=== PATIENT | male | born 1935 | race Caucasian/White ===

== ENCOUNTER 2017-01-26 13:45 | Emergency (ER) | payer OTHER ==
[~2017-01-26] VITALS: Ht 182.9 cm; Wt 69.0 kg
[~2017-01-26 13:45] MED LIST: AMLO5TAB22 PO; APIX5TAB PO; DIGO0.12 PO; FERR65TA PO; HYDR-3535 PO; METO50CR PO; OMEP20TA PO; PRAV40TA2 PO; REST30CA PO; TAMS0.4C67 PO; VISM150C PO; VITA100020 PO; VITA500015 CHEW; ZOFR4TAB3 SL
[2017-01-26 13:51] VITALS: BP 161/79; PULSE 83; RESP 16; TEMP 98.4; O2SAT 100
[2017-01-26] MEDS ORDERED: PRIL20TA2 PO (14:45)
[2017-01-26] MEDS ORDERED: DIGO0.12 PO (14:45)
[2017-01-26] MEDS ORDERED: TEMA15CA PO (14:45)
[2017-01-26] MEDS ORDERED: PRAV40TA2 PO (14:45)
[2017-01-26] MEDS ORDERED: NEUR100C PO (14:45)
[2017-01-26] MEDS ORDERED: AMMO12CR4 TOP (14:45)
[2017-01-26] MEDS ORDERED: DILT120C9 PO (14:45)
[2017-01-26] MEDS ORDERED: TAMS5CAP PO (14:45)
[2017-01-26] MEDS ORDERED: APIX5TAB PO (14:45)
[2017-01-26] MEDS ORDERED: ZINC50TA2 PO (14:48)
[2017-01-26] MEDS ORDERED: MAPA500T13 PO (14:48)
[2017-01-26] MEDS ORDERED: TUMS500C CHEW (14:48)
[2017-01-26] MEDS ORDERED: VITA250C3 CHEW (14:48)
[2017-01-26] MEDS ORDERED: DIPH25CA PO (14:48)
[2017-01-26] MEDS ORDERED: CHOL1CAP14 PO (14:48)
[2017-01-26] MEDS ORDERED: FERR325C PO (14:48)
[2017-01-26] MEDS ORDERED: CYAN1TAB24 PO (14:48)
--- NOTE | 2017-01-26 14:55 | PD ---
HPI . Right lower leg swelling Chief Complaint: Skin Problem Time Seen by Provider: 14:07 Travel History International Travel<30 days: No Contact w/Intl Traveler<30days: No Traveled to known affect area: No History of Present Illness HPI 81-year-old male patient presents emergency department for evaluation of right lower leg swelling. Patient was doing some yard work yesterday and thought he might have gotten bitten by a bug. However he does not have any localized itching or bug bite montalvo. Patient denies any injury or trauma to the right lower leg. He says he first noticed the swelling this morning. He has a history of 5 times of cancer and has recently had some skin cancer removed in October. Patient states the right lower leg is a little bit sore but he is able to bear weight. There is mild erythema localized warmth. Patient denies any chest pain, shortness breath, fever, chills, malaise, abdominal pain, nausea, vomiting, diarrhea or lightheadedness. PFSH Past Medical History Hx Anticoagulant Therapy: Yes (ELIQUIS) Anxiety: No Depression: Yes Heart Rhythm Problems: Yes Cancer: Yes (PROSTATE, COLON, SKIN) Cardiovascular Problems: Yes (PACEMAKER) High Cholesterol: No Chest Pain: No Congestive Heart Failure: No Cerebrovascular Accident: No Diabetes: No Diminished Hearing: No Endocrine: No Gastrointestinal Disorders: Yes GERD: Yes Genitourinary: Yes Hiatal Hernia: No Hypertension: Yes Immune Disorder: No Implanted Vascular Access Dvce: Yes Kidney Stones: No Musculoskeletal: No Neurologic: Yes Psychiatric: Yes Reproductive: Yes Respiratory: No Migraines: No Radiation Therapy: Yes (2007) Renal Failure: No Tetanus Vaccination: Unknown Influenza Vaccination: No Past Surgical History Abdominal Surgery: Yes (colon resection, gastrectomy, appendectomy ) Appendectomy: Yes Cardiac Surgery: Yes (pacemaker) Eye Surgery: Yes (cataract ) Pacemaker: Yes Other Surgery: Yes (PROSTRATE AND COLON SURGERY DUE TO CA) Social History Alcohol Use: Yes (1-2 glasses wine/night) Tobacco Use: No Substance Use: No Allergies-Medications (Allergen,Severity, Reaction): Coded Allergies: No Known Allergies (Verified , 01/26/17) Reported Meds & Prescriptions Reported Meds & Active Scripts Active Reported Mapap Extra Strength (Acetaminophen) 500 Mg Tab 500 Mg PO Q4-6H PRN Tums (Calcium Carbonate (Antacid)) 500 Mg Chew 500 Mg CHEW DAILY PRN Diphenhydramine (Diphenhydramine HCl) 25 Mg Cap 25 Mg PO HS PRN Vitamin C (Ascorbic Acid) 250 Mg Chew 1,000 Mg CHEW DAILY Zinc Gluconate 50 Mg Tab 50 Mg PO DAILY Iron (Ferrous Sulfate) 325 Mg Cap 325 Mg PO DAILY D3 Maximum Strength (Cholecalciferol) 5,000 Unit Cap 5,000 Units PO EVERY OTHER DAY B12 (Cyanocobalamin) 1,000 Mcg Tab 1 Tab PO EVERY OTHER DAY Diltiazem ER 12 HR (Diltiazem HCl) 120 Mg Caper 120 Mg PO DAILY Prilosec (Omeprazole Magnesium) 20 Mg Tab 1 Tab PO DAILY PRN Ammonium Lactate (Lactic Acid) 12 % Cre 1 Applic TOP BID APPLY TO: Temazepam 15 Mg Cap 15 Mg PO HS PRN Neurontin (Gabapentin) 100 Mg Cap 100 Mg PO DIRECTED Eliquis (Apixaban) 5 Mg Tab 5 Mg PO BID Pravastatin 40 Mg Tab 40 Mg PO DAILY Digoxin 0.125 Mg Tab 0.125 Mg PO DAILY Flomax (Tamsulosin HCl) 0.4 Mg Cap 0.4 Mg PO HS Review of Systems Except as stated in HPI: all other systems reviewed are Neg Musculoskeletal: Positive: Edema (right lower leg) Physical Exam Narrative GENERAL: Well-nourished, well-developed 81-year-old male patient in no acute distress. Nontoxic appearing. SKIN: Focused skin assessment warm/dry. HEAD: Normocephalic. Atraumatic EYES: No scleral icterus. No injection or drainage. NECK: Supple, trachea midline. No JVD or lymphadenopathy. CARDIOVASCULAR: Regular rate and rhythm without murmurs, gallops, or rubs. RESPIRATORY: Breath sounds equal bilaterally. No accessory muscle use. GASTROINTESTINAL: Abdomen soft, non-tender, nondistended. MUSCULOSKELETAL: Right lower extremity swollen and slightly erythemic. Slightly delayed capillary refill on the right lower extremity. Faint pedal pulses in the right lower extremity noted. No cyanosis or obvious deformity noted. BACK: Nontender without obvious deformity. No CVA tenderness. Data Data Last Documented VS Vital Signs Date Time Temp Pulse Resp B/P (MAP) Pulse Ox O2 Delivery O2 Flow Rate FiO2 01/26/17 13:51 98.4 83 16 161/79 (106) 100 Orders Orders Us Leg Venous Doppler (01/26/17 ) MDM Medical Decision Making Medical Screen Exam Complete: Yes Emergency Medical Condition: Yes Differential Diagnosis Effective diagnosis is included but not limited to cellulitis, DVT, right lower leg contusion Narrative Course 81-year-old male presents to emergency department for evaluation of right lower leg swelling. Patient has no chest pain, shortness breath, fever, chills, malaise. Faint pedal pulses noted in right lower extremity, slightly delayed capillary of the right lower extremity. Due to history of recent malignancy and the spontaneous swelling of the right lower extremity with no known injury or trauma my suspicion for DVT is heightened. Ultrasound of right lower extremity ordered to rule out DVT. Ultrasound showed no DVT in the right leg. Based on patient's symptoms, clinical presentation, radiological results, vital sign review and physical exam it is not necessary to admit the patient to the hospital or keep the patient in the emergency department for further evaluation. Patient will be treated for nonpurulent cellulitis with a prescription for cephalexin and Bactrim and will be discharged home. Diagnosis Primary Impression: Cellulitis of right leg Patient Instructions: Cellulitis (ED), General Instructions Additional Instructions: Please return to emergency department with signs or symptoms of infection including redness, warmth, increasing pain, fevers. Follow up with your primary care provider. Take medications as prescribed. Med/Other Pt SpecificInfo: Prescription(s) given Scripts Sulfamethoxazole-Trimethoprim (Bactrim DS) 800-160 Mg Tab 1 TAB PO BID for Infection for 10 Days, #20 TAB 0 Refills Prov: Lavern Olvera 01/26/17 Cephalexin (Cephalexin) 500 Mg Cap 500 MG PO QID for Infection for 10 Days, CAP 0 Refills Prov: Lavern Olvera 01/26/17 Disposition: 01 DISCHARGE HOME Condition: Stable Lavern Olvera Jan 26, 2017 14:55
--- NOTE | 2017-01-26 15:36 | RADRPT ---
EXAM DATE/TIME: 01/26/2017 15:15 [facility] COMPARISON: No previous studies available for comparison. INDICATIONS : Right leg swelling and pain. MEDICAL HISTORY : Hypertension. Gastroesophageal reflux disease. Syncope. Prostate cancer. Colon cancer. Skin cance r. Chemotherapy. SURGICAL HISTORY : Pacemaker. Colon resection. Appendectomy. Gastrectomy. Prostectomy. ENCOUNTER: Initial ACUITY: 2 day PAIN SCORE: 8/10 LOCATION: Right leg. TECHNIQUE: Venous ultrasound of the leg was performed from the inguinal ligament to the proximal calf. Real-leonel e, color Doppler and spectral tracing, compression and augmentation techniques were used. FINDINGS: There is normal compressibility of the deep venous system from the inguinal region to the proximal ca lf. No echogenic clot is seen in the lumen of the common femoral, femoral, popliteal, and posterior tibial veins. CONCLUSION: No DVT in the right leg. Tony Osullivan MD on January 26, 2017 at 15:34 Board Certified Radiologist. This report was verified electronically.
[2017-01-26] MEDS ORDERED: BACT800T5 PO (16:06)
[2017-01-26] MEDS ORDERED: CEPH500C PO (16:06)
== END 2017-01-26 16:17 | disposition home or self-care (01) ==
LOC: PHEFT 13:45
DX: L03.115 Cellulitis of right lower limb (principal); I10 Essential (primary) hypertension; Z85.038 Personal history of other malignant neoplasm of large intestine; Z85.46 Personal history of malignant neoplasm of prostate; Z95.0 Presence of cardiac pacemaker
CPT/HCPCS: 93971; 99284

== ENCOUNTER 2017-01-28 13:26 | Emergency (ER) | payer OTHER ==
[~2017-01-28] VITALS: Ht 182.9 cm; Wt 68.8 kg
[~2017-01-28 13:26] MED LIST changes: -AMLO5TAB22 PO; +AMMO12CR4 TOP; +BACT800T5 PO; +CEPH500C PO; +CHOL1CAP14 PO; +CYAN1TAB24 PO; +DILT120C9 PO; +DIPH25CA PO; +FERR325C PO; -FERR65TA PO; -HYDR-3535 PO; +MAPA500T13 PO; -METO50CR PO; +NEUR100C PO; -OMEP20TA PO; +PRIL20TA2 PO; -REST30CA PO; -TAMS0.4C67 PO; +TAMS5CAP PO; +TEMA15CA PO; +TUMS500C CHEW; -VISM150C PO; -VITA100020 PO; +VITA250C3 CHEW; -VITA500015 CHEW; +ZINC50TA2 PO; -ZOFR4TAB3 SL
[2017-01-28 13:39] VITALS: BP 132/73; PULSE 70; RESP 18; TEMP 97.4; O2SAT 98
[2017-01-28] MEDS ORDERED: IOHEXOL 350 MG/ML 10 ML VIAL (for RAD DIAG) IVCONTRAST ONE (14:30)
[2017-01-28 14:33] LABS: AUTOMATED NEUTROPHIL # 5.2 TH/MM3 (1.8-7.7); BASOPHIL # 0.1 TH/MM3 (0-0.2); BASOPHIL % 0.8 % (0.0-2.0); EOSINOPHIL # 0.1 TH/MM3 (0-0.4); EOSINOPHIL % 1.5 % (0.0-4.0); HEMATOCRIT 37.8 % (39.0-51.0); HEMO FLAGS DIFF FINAL; LYMPH % 15.9 % (9.0-44.0); LYMPHOCYTE # 1.2 TH/MM3 (1.0-4.8); MEAN CELL VOLUME 94.5 FL (80.0-100.0); MEAN CORPUSCULAR HGB CONC 31.8 % (32.0-36.0); MONO % 10.2 % (0.0-8.0); NEUT % 71.6 % (16.0-70.0); PLATELET COUNT 154 TH/MM3 (150-450); RED BLOOD COUNT 4.01 MIL/MM3 (4.50-5.90); RED CELL DISTRIBUTION WIDTH 14.6 % (11.6-17.2); WHITE BLOOD COUNT 7.3 TH/MM3 (4.0-11.0)
[2017-01-28 14:34] LABS: CHLORIDE 104 MEQ/L (98-107); SODIUM (NA) 138 MEQ/L (136-145)
[2017-01-28 14:37] LABS: ANION GAP 7 MEQ/L (5-15); BLOOD UREA NITROGEN 16 MG/DL (7-18)
[2017-01-28 14:40] LABS: ALT (GPT) 23 U/L (12-78); AST (GOT) 14 U/L (15-37)
[2017-01-28 14:41] LABS: GLOMERULAR FILTRATION RATE 71 ML/MIN (>89)
[2017-01-28 14:42] LABS: TOTAL BILIRUBIN ADULT 0.5 MG/DL (0.2-1.0)
[2017-01-28 14:43] LABS: ALKALINE PHOSPHATASE 99 U/L (45-117)
[2017-01-28] MEDS ORDERED: traMADol HCL 50 MG TAB PO ONE (15:30)
[2017-01-28 15:44] VITALS: BP 149/77; PULSE 70; RESP 16; O2SAT 98
[2017-01-28] MEDS ORDERED: DALBAVANCIN INJ 1,500 MG in DEXTROSE 5% IN WATE 500 ML INJ 500 ML IV STA ×2 (16:28)
[2017-01-28] MEDS ORDERED: ASP: Only reason for admit - IV antibiotics OTHER ONE (16:30)
[2017-01-28] MEDS ORDERED: ASP: No known hypersensitivity to Vanco, Telavancin, Dalbavancin OTHER ONE (16:30)
[2017-01-28] MEDS ORDERED: ASP: Location of Dalbavancin administration OTHER ONE (16:30)
[2017-01-28] MEDS ORDERED: MISCELLANEOUS PHARMACY INFORMATION XX ONE (16:30)
[2017-01-28] MEDS ORDERED: ASP: Does not meet inpatient admission criteria OTHER ONE (16:30)
--- NOTE | 2017-01-28 16:42 | RADRPT ---
EXAM DATE/TIME: 01/28/2017 14:28 [facility] COMPARISON: No previous studies available for comparison. INDICATIONS : Left lower leg redness and swelling posteriorly. IV CONTRAST: 96 cc Omnipaque 350 (iohexol) IV RADIATION DOSE: 16.52 CTDIvol (mGy) MEDICAL HISTORY : Cardiovascular disease. Hypertension. Ca colon, prostate with radiation. SURGICAL HISTORY : Colon resection. Appendectomy.Gastrectomy. ENCOUNTER: Initial ACUITY: 3 days PAIN SCALE: 8/10 LOCATION: Left lower leg TECHNIQUE: Volumetric scanning was performed using a multi-row detector CT scanner. The data was post processed with a variety of visualization algorithms including full volume maximum intensity projection, multi -planar sliding thin slab reformation, curved planar reformation, and surface rendering techniques. Using automated exposure control and adjustment of the mA and/or kV according to patient size, radiat ion dose was kept as low as reasonably achievable to obtain optimal diagnostic quality images. DICO M format image data is available electronically for review and comparison. FINDINGS: Abdominal aorta is notable for patchy intimal calcification. No evidence of significant aortic stenos is. No aneurysm. Looking at the visceral vessels, the celiac is widely patent. SMA and renals are pat ent without significant stenotic narrowing. The JANELLE is patent. In the pelvis cavity iliacs are widely patent. The hypogastrics are patent bilaterally. Common femora l arteries are relatively healthy in appearance. The profundas are widely patent. In the legs, the superficial femoral arteries are notable for occasional mild disease with a slightly less than 50% focal stenosis in the left SFA at the mid thigh level. The popliteal arteries are rela tively healthy in appearance. There is significant calf vessel disease bilaterally. On the left, the peritoneal appears intact to the foot with occasional mild disease. The posterior tibial appears to b e occluded. The anterior tibial is discontinuous. On the right, the peritoneal and posterior tibial a ppear to be patent. Anterior tibial appears to be discontinuous. CONCLUSION: No significant aortoiliac inflow disease. Mild femoropopliteal runoff disease, left worse than right. Severe tibial disease bilaterally, left worse than right Cem Galan MD on January 28, 2017 at 16:32 Board Certified Radiologist. This report was verified electronically.
--- NOTE | 2017-01-28 17:24 | PD ---
HPI Chief Complaint: Skin Problem Time Seen by Provider: 13:58 Travel History International Travel<30 days: No Contact w/Intl Traveler<30days: No Traveled to known affect area: No History of Present Illness HPI Patient is an 81-year-old male who comes in complaining of pain and swelling to his right leg. He was seen here and diagnosed with cellulitis. He was discharged with prescriptions for Bactrim and Keflex. He has taken 2 days worth of the medications, and says he is getting worse. He says he has had increased swelling and pain to the right leg as well as increase redness. He denies fever or chills. He denies chest pain or shortness of breath. He says this started after he was working in the yard, so he thinks he had some sort of insect bite though he never did see an actual bite. PFSH Past Medical History Hx Anticoagulant Therapy: Yes (ELIQUIS) Anxiety: No Depression: Yes Heart Rhythm Problems: Yes Cancer: Yes (PROSTATE, COLON, SKIN) Cardiovascular Problems: Yes (PACER) High Cholesterol: No Chest Pain: No Congestive Heart Failure: No Cerebrovascular Accident: No Diabetes: No Diminished Hearing: No Endocrine: No Gastrointestinal Disorders: Yes GERD: Yes Genitourinary: Yes Hiatal Hernia: No Hypertension: Yes Immune Disorder: No Implanted Vascular Access Dvce: Yes Kidney Stones: No Musculoskeletal: No Neurologic: Yes Psychiatric: Yes Reproductive: Yes Respiratory: No Migraines: No Radiation Therapy: Yes (2007) Renal Failure: No Tetanus Vaccination: < 5 Years Influenza Vaccination: Yes Past Surgical History Abdominal Surgery: Yes (colon resection, gastrectomy, appendectomy ) Appendectomy: Yes Cardiac Surgery: Yes (pacemaker) Eye Surgery: Yes (cataract ) Pacemaker: Yes Other Surgery: Yes (PROSTRATE AND COLON SURGERY DUE TO CA) Social History Alcohol Use: Yes (1-2 glasses wine/night) Tobacco Use: No Substance Use: No Allergies-Medications (Allergen,Severity, Reaction): Coded Allergies: No Known Allergies (Verified , 01/28/17) Reported Meds & Prescriptions Reported Meds & Active Scripts Active Bactrim DS (Sulfamethoxazole-Trimethoprim) 800-160 Mg Tab 1 Tab PO BID 10 Days Cephalexin 500 Mg Cap 500 Mg PO QID 10 Days Reported Mapap Extra Strength (Acetaminophen) 500 Mg Tab 500 Mg PO Q4-6H PRN Tums (Calcium Carbonate (Antacid)) 500 Mg Chew 500 Mg CHEW DAILY PRN Diphenhydramine (Diphenhydramine HCl) 25 Mg Cap 25 Mg PO HS PRN Vitamin C (Ascorbic Acid) 250 Mg Chew 1,000 Mg CHEW DAILY Zinc Gluconate 50 Mg Tab 50 Mg PO DAILY Iron (Ferrous Sulfate) 325 Mg Cap 325 Mg PO DAILY D3 Maximum Strength (Cholecalciferol) 5,000 Unit Cap 5,000 Units PO EVERY OTHER DAY B12 (Cyanocobalamin) 1,000 Mcg Tab 1 Tab PO EVERY OTHER DAY Diltiazem ER 12 HR (Diltiazem HCl) 120 Mg Caper 120 Mg PO DAILY Prilosec (Omeprazole Magnesium) 20 Mg Tab 1 Tab PO DAILY PRN Ammonium Lactate (Lactic Acid) 12 % Cre 1 Applic TOP BID APPLY TO: Temazepam 15 Mg Cap 15 Mg PO HS PRN Neurontin (Gabapentin) 100 Mg Cap 100 Mg PO DIRECTED Eliquis (Apixaban) 5 Mg Tab 5 Mg PO BID Pravastatin 40 Mg Tab 40 Mg PO DAILY Digoxin 0.125 Mg Tab 0.125 Mg PO DAILY Flomax (Tamsulosin HCl) 0.4 Mg Cap 0.4 Mg PO HS Review of Systems Except as stated in HPI: all other systems reviewed are Neg General / Constitutional: No: Fever, Chills HENT: No: Headaches, Lightheadedness Cardiovascular: No: Chest Pain or Discomfort Respiratory: No: Shortness of Breath Gastrointestinal: No: Nausea, Vomiting Musculoskeletal: Positive: Edema, Pain Skin: Positive Change in Pigmentation Neurologic: No: Weakness, Dizziness Physical Exam Narrative GENERAL: Awake and alert, in no acute distress. SKIN: Erythema and warmth to the right lower extremity, and he just below the knee. No abscess seen. HEAD: Atraumatic. Normocephalic. EYES: Pupils equal and round. No scleral icterus. ENT: No nasal bleeding or discharge. Mucous membranes pink and moist. NECK: Trachea midline. No JVD. CARDIOVASCULAR: Regular rate and rhythm. No murmur appreciated. RESPIRATORY: No accessory muscle use. Clear to auscultation. Breath sounds equal bilaterally. MUSCULOSKELETAL: No obvious deformities. No clubbing. No cyanosis. 2+ pitting edema of the right lower extremity. Tenderness to the right calf. Pedal pulses intact. NEUROLOGICAL: Awake and alert. No obvious cranial nerve deficits. Motor grossly within normal limits. Normal speech. PSYCHIATRIC: Appropriate mood and affect; insight and judgment normal. Data Data Last Documented VS Vital Signs Date Time Temp Pulse Resp B/P (MAP) Pulse Ox O2 Delivery O2 Flow Rate FiO2 01/28/17 15:44 70 16 149/77 (101) 98 Room Air 01/28/17 13:39 97.4 Orders Orders Iv Access Insert/Monitor (01/28/17 14:04) Complete Blood Count With Diff (01/28/17 14:04) Comprehensive Metabolic Panel (01/28/17 14:04) Cta Runoff W Iv Contrast W 3d (01/28/17 ) Iohexol 350 Inj (Omnipaque 350 Inj) (01/28/17 14:30) Tramadol (Ultram) (01/28/17 15:30) Asp:No Reaction To [place]/Vanc (Asp Crit (01/28/17 16:30) Asp: Does Not Meet Inpt Admit (Asp Crit: (01/28/17 16:30) Asp: Iv Antibiotics Admit Only (Asp Crit (01/28/17 16:30) Asp: Location Of [place] Admin (Asp Crit: (01/28/17 16:30) [facility] Information ([facility] (01/28/17 16:30) Dalbavancin Inj (Dalvance Inj) (01/28/17 16:28) Labs Laboratory Tests Test 01/28/17 14:15 White Blood Count 7.3 TH/MM3 Red Blood Count 4.01 MIL/MM3 Hemoglobin 12.0 GM/DL Hematocrit 37.8 % Mean Corpuscular Volume 94.5 FL Mean Corpuscular Hemoglobin 30.0 PG Mean Corpuscular Hemoglobin Concent 31.8 % Red Cell Distribution Width 14.6 % Platelet Count 154 TH/MM3 Mean Platelet Volume 9.4 FL Neutrophils (%) (Auto) 71.6 % Lymphocytes (%) (Auto) 15.9 % Monocytes (%) (Auto) 10.2 % Eosinophils (%) (Auto) 1.5 % Basophils (%) (Auto) 0.8 % Neutrophils # (Auto) 5.2 TH/MM3 Lymphocytes # (Auto) 1.2 TH/MM3 Monocytes # (Auto) 0.7 TH/MM3 Eosinophils # (Auto) 0.1 TH/MM3 Basophils # (Auto) 0.1 TH/MM3 CBC Comment DIFF FINAL Differential Comment Blood Urea Nitrogen 16 MG/DL Creatinine 1.00 MG/DL Random Glucose 99 MG/DL Total Protein 7.2 GM/DL Albumin 3.2 GM/DL Calcium Level 8.4 MG/DL Alkaline Phosphatase 99 U/L Aspartate Amino Transf (AST/SGOT) 14 U/L Alanine Aminotransferase (ALT/SGPT) 23 U/L Total Bilirubin 0.5 MG/DL Sodium Level 138 MEQ/L Potassium Level 4.0 MEQ/L Chloride Level 104 MEQ/L Carbon Dioxide Level 27.0 MEQ/L Anion Gap 7 MEQ/L Estimat Glomerular Filtration Rate 71 ML/MIN [facility] Medical Decision Making Medical Screen Exam Complete: Yes Emergency Medical Condition: Yes Medical Record Reviewed: Yes Differential Diagnosis Cellulitis versus DVT versus abscess Narrative Course Patient is a 81-year-old male comes in complaining of worsening pain and swelling to his right leg. Exam shows erythema and warmth as well as edema of the right lower extremity. IV established, labs sent. White blood cell count is within normal limits. CTA of the lower extremities performed shows no evidence of clot, he does have extensive arterial disease, but pulses are intact. Disease is worse on the left. Patient informed of these results. Advised follow-up with a vascular surgeon. Given a dose of Dalvance. Advised to stop the Keflex and Bactrim. Advised that if he has any worsening symptoms he should return immediately. Advised to follow-up with his doctor. Diagnosis Primary Impression: Cellulitis of right leg Referrals: Bj Maddox MD call for appointment Patient Instructions: Cellulitis (ED), General Instructions Additional Instructions: You do have some disease in the arteries of your legs. He should follow-up with a vascular surgeon regarding this. The antibiotic he received today should treat ear infection without further medications. If at any time if symptoms worsen, come back immediately. Follow-up with your primary care doctor. Disposition: DISCHARGE HOME Condition: Stable Lavern Sorto MD Jan 28, 2017 17:24
[2017-01-28 17:27] VITALS: BP 153/80; PULSE 67; RESP 16; O2SAT 100
[2017-01-28 18:02] VITALS: BP 162/71; PULSE 68; RESP 15; TEMP 97.6; O2SAT 98
== END 2017-01-28 18:21 | disposition home or self-care (01) ==
LOC: PHED 13:26
DX: L03.115 Cellulitis of right lower limb (principal); I10 Essential (primary) hypertension; K21.9 Gastro-esophageal reflux disease without esophagitis; Z79.01 Long term (current) use of anticoagulants; Z95.0 Presence of cardiac pacemaker; Z85.038 Personal history of other malignant neoplasm of large intestine; Z85.46 Personal history of malignant neoplasm of prostate
CPT/HCPCS: 75635; 80053; 85025; 96365; 99285; J0875; J7060; Q9967

== ENCOUNTER 2017-06-05 12:50 | Emergency (ER) | payer OTHER ==
[~2017-06-05 12:50] MED LIST changes: -CHOL1CAP14 PO; +D 50CAP2 PO
[2017-06-05 13:05] VITALS: BP 147/74; PULSE 80; RESP 24; TEMP 98.5; O2SAT 99
[2017-06-05] MEDS ORDERED: SODIUM CHLORIDE 0.9% FLUSH 10 ML FLUSH IV FLUSH PRN (13:15)
--- NOTE | 2017-06-05 13:18 | PD ---
HPI Chief Complaint: Respiratory Symptoms Time Seen by Provider: 12:59 Travel History International Travel<30 days: No Contact w/Intl Traveler<30days: No Traveled to known affect area: No History of Present Illness HPI 81-year-old male with history of CVA on Coumadin, ventricular pacemaker, brought in by his neighbor for evaluation of left arm twitching and shortness of breath. The patient states that earlier today he was unable to control his left arm. At that time he felt short of breath. Upon arrival to the emergency department the patient's symptoms have resolved, however the patient reports having trouble remembering things. His neighbor states that he seems somewhat confused and this is not normal for him. Patient denies having chest pain or arm pain. No headache. No paresthesias or motor deficits. No fevers, chills, cough, or recent illness. PFSH Past Medical History Hx Anticoagulant Therapy: Yes (ELIQUIS) Anxiety: No Depression: Yes Heart Rhythm Problems: Yes Cancer: Yes (PROSTATE, COLON, SKIN) Cardiovascular Problems: Yes (PACER) High Cholesterol: No Chest Pain: No Congestive Heart Failure: No Cerebrovascular Accident: No Diabetes: No Diminished Hearing: No Endocrine: No Gastrointestinal Disorders: Yes GERD: Yes Genitourinary: Yes Hiatal Hernia: No Hypertension: Yes Immune Disorder: No Implanted Vascular Access Dvce: Yes Kidney Stones: No Musculoskeletal: No Neurologic: Yes Psychiatric: Yes Reproductive: Yes Respiratory: No Migraines: No Radiation Therapy: Yes (2007) Renal Failure: No Past Surgical History Abdominal Surgery: Yes (colon resection, gastrectomy, appendectomy ) Appendectomy: Yes Cardiac Surgery: Yes (pacemaker) Eye Surgery: Yes (cataract ) Pacemaker: Yes Other Surgery: Yes (PROSTRATE AND COLON SURGERY DUE TO CA) Social History Alcohol Use: Yes (1-2 glasses wine/night) Tobacco Use: No Substance Use: No Allergies-Medications (Allergen,Severity, Reaction): Coded Allergies: No Known Allergies (Verified Adverse Reaction, Unknown, 06/05/17) Reported Meds & Prescriptions Reported Meds & Active Scripts Active Macrobid (Nitrofurantoin Monoh/Nitrofur Macro) 100 Mg Cap 100 Mg PO BID 5 Days Reported Mapap Extra Strength (Acetaminophen) 500 Mg Tab 500 Mg PO Q4-6H PRN Tums (Calcium Carbonate (Antacid)) 500 Mg Chew 500 Mg CHEW DAILY PRN Vitamin C (Ascorbic Acid) 250 Mg Chew 1,000 Mg CHEW DAILY Zinc Gluconate 50 Mg Tab 50 Mg PO DAILY D3 Maximum Strength (Cholecalciferol) 5,000 Unit Cap 5,000 Units PO EVERY OTHER DAY B12 (Cyanocobalamin) 1,000 Mcg Tab 1 Tab PO EVERY OTHER DAY Diltiazem ER 12 HR (Diltiazem HCl) 120 Mg Caper 120 Mg PO DAILY Prilosec (Omeprazole Magnesium) 20 Mg Tab 1 Tab PO DAILY PRN Ammonium Lactate (Lactic Acid) 12 % Cre 1 Applic TOP BID APPLY TO: Temazepam 15 Mg Cap 15 Mg PO HS PRN Eliquis (Apixaban) 5 Mg Tab 5 Mg PO BID Pravastatin 40 Mg Tab 40 Mg PO DAILY Digoxin 0.125 Mg Tab 0.125 Mg PO DAILY Flomax (Tamsulosin HCl) 0.4 Mg Cap 0.4 Mg PO HS Review of Systems Except as stated in HPI: all other systems reviewed are Neg Physical Exam Narrative GENERAL: Well-developed, well-nourished, comfortable, no apparent distress, awake, alert, GCS 15. SKIN: Focused skin assessment warm/dry. HEAD: Atraumatic. Normocephalic. EYES: Pupils equal and round. No scleral icterus. No injection or drainage. ENT: Mucous membranes pink and moist. NECK: Trachea midline. No JVD. CARDIOVASCULAR: Regular rate and rhythm. RESPIRATORY: No accessory muscle use. Clear to auscultation. Breath sounds equal bilaterally. GASTROINTESTINAL: Abdomen soft, non-tender, nondistended. MUSCULOSKELETAL: No obvious deformities. No clubbing. No cyanosis. No edema. NEUROLOGICAL: Awake and alert. No obvious cranial nerve deficits. Motor grossly within normal limits. Normal speech. No focal deficits. PSYCHIATRIC: Appropriate mood and affect; insight and judgment normal. Data Data Last Documented VS Vital Signs Date Time Temp Pulse Resp B/P (MAP) Pulse Ox O2 Delivery O2 Flow Rate FiO2 06/05/17 13:43 98 Room Air 06/05/17 13:05 98.5 80 24 147/74 (98) Orders Orders Electrocardiogram (06/05/17 13:10) Ammonia (06/05/17 13:10) Complete Blood Count With Diff (06/05/17 13:10) Comprehensive Metabolic Panel (06/05/17 13:10) Creatine Kinase (Cpk) (06/05/17 13:10) Prothrombin Time / Inr (Pt) (06/05/17 13:10) Act Partial Throm Time (Ptt) (06/05/17 13:10) Troponin I (06/05/17 13:10) Thyroid Stimulating Hormone (06/05/17 13:10) Urinalysis - C+S If Indicated (06/05/17 13:10) Chest, Single Ap (06/05/17 13:10) Ct Brain W/O Iv Contrast(Rout) (06/05/17 13:10) Blood Glucose (06/05/17 13:10) Ecg Monitoring (06/05/17 13:10) Iv Access Insert/Monitor (06/05/17 13:10) Oximetry (06/05/17 13:10) Sodium Chloride 0.9% Flush (Ns Flush) (06/05/17 13:15) Urine Culture (06/05/17 13:51) Nitrofurantoin Monohyd Macrocr (Macrobid (06/05/17 15:15) Digoxin (06/05/17 15:12) Ed Discharge Order (06/05/17 16:09) Labs Laboratory Tests Test 06/05/17 13:40 06/05/17 13:49 06/05/17 13:51 White Blood Count 5.0 TH/MM3 Red Blood Count 4.00 MIL/MM3 Hemoglobin 12.4 GM/DL Hematocrit 37.3 % Mean Corpuscular Volume 93.1 FL Mean Corpuscular Hemoglobin 31.1 PG Mean Corpuscular Hemoglobin Concent 33.4 % Red Cell Distribution Width 13.7 % Platelet Count 142 TH/MM3 Mean Platelet Volume 8.9 FL Neutrophils (%) (Auto) 80.2 % Lymphocytes (%) (Auto) 11.4 % Monocytes (%) (Auto) 6.4 % Eosinophils (%) (Auto) 1.2 % Basophils (%) (Auto) 0.8 % Neutrophils # (Auto) 4.0 TH/MM3 Lymphocytes # (Auto) 0.6 TH/MM3 Monocytes # (Auto) 0.3 TH/MM3 Eosinophils # (Auto) 0.1 TH/MM3 Basophils # (Auto) 0.0 TH/MM3 CBC Comment AUTO DIFF Differential Comment Prothrombin Time 11.9 SEC Prothromb Time International Ratio 1.2 RATIO Activated Partial Thromboplast Time 31.2 SEC Blood Urea Nitrogen 17 MG/DL Creatinine 1.10 MG/DL Random Glucose 111 MG/DL Total Protein 7.0 GM/DL Albumin 3.4 GM/DL Calcium Level 8.7 MG/DL Alkaline Phosphatase 87 U/L Aspartate Amino Transf (AST/SGOT) 22 U/L Alanine Aminotransferase (ALT/SGPT) 26 U/L Total Bilirubin 0.9 MG/DL Sodium Level 135 MEQ/L Potassium Level 3.7 MEQ/L Chloride Level 103 MEQ/L Carbon Dioxide Level 21.2 MEQ/L Anion Gap 11 MEQ/L Estimat Glomerular Filtration Rate 64 ML/MIN Ammonia 13 MCMOL/L Total Creatine Kinase 63 U/L Troponin I LESS THAN 0.02 NG/ML Thyroid Stimulating Hormone 3rd Gen 2.080 uIU/ML Digoxin Level 0.9 NG/ML Urine Collection Type CATH Urine Color YELLOW Urine Turbidity CLEAR Urine pH 6.5 Urine Specific [place] 1.020 Urine Protein NEG mg/dL Urine Glucose (UA) NEG mg/dL Urine Ketones 15 mg/dL Urine Occult Blood NEG Urine Nitrite NEG Urine Bilirubin NEG Urine Leukocyte Esterase NEG Urine WBC 0-2 /hpf Urine Squamous Epithelial Cells 0-2 /hpf Urine Bacteria OCC /hpf Urine Mucus FEW /lpf Microscopic Urinalysis Comment CULTURE INDICATED MDM Medical Decision Making Medical Screen Exam Complete: Yes Emergency Medical Condition: Yes Medical Record Reviewed: Yes Interpretation(s) EKG: Electronic ventricular paced at a rate of 80 Differential Diagnosis Metabolic abnormality, UTI, electrolyte abnormality, anemia, intracranial abnormality, ACS, CVA Narrative Course Initial vital signs show heart rate 80, blood pressure 147/74, pulse ox 99% on room air, oral temp of 98.5F. CBC: WBC 5, hemoglobin 12.4, hematocrit 37.3, platelets 142, neutrophils 80%. CMP is unremarkable. Cardiac enzymes are negative. Ammonia level is 13. TSH is 2.08. Digoxin level is 0.9. UA shows occasional bacteria with few mucus, culture indicated. Chest x-ray: Lungs are mildly hyperinflated but clear. Cocktail cardiomegaly. CT head: CONCLUSION: Negative for acute process. The patient is overall very well-appearing. There are no focal deficits on exam. His main complaint was that his left arm was tremulous and he was unable to control it earlier today. The symptoms have seemed to have resolved. He never had any chest pain. At this point I believe he is stable for discharge home with outpatient follow-up with his primary care physician this week. He was advised on when to return to the emergency department. He verbalizes understanding and agreement with plan. Diagnosis Primary Impression: UTI (urinary tract infection) Qualified Codes: N39.0 - Urinary tract infection, site not specified Referrals: Primary Care Physician 3 days Additional Instructions: Follow-up with your primary care physician this week. Return to the emergency department for worsening symptoms or any other concerns. Scripts Nitrofurantoin Monohydrate Macrocrystals (Macrobid) 100 Mg Cap 100 MG PO BID for Infection for 5 Days, #10 CAP 0 Refills Prov: Kevin Miller MD 06/05/17 Disposition: 01 DISCHARGE HOME Condition: Stable Kevin Miller MD Jun 05, 2017 13:18
[2017-06-05 13:43] VITALS: O2SAT 98
--- NOTE | 2017-06-05 13:51 | RADRPT ---
EXAM DATE/TIME: 06/05/2017 13:27 [facility] COMPARISON: No previous studies available for comparison. INDICATIONS : Chest pain MEDICAL HISTORY : Cardiovascular disease. Hypertension. Ca colon, prostate with radiation SURGICAL HISTORY : Colon resection. Appendectomy.Gastrectomy. ENCOUNTER: Initial ACUITY: 1 day PAIN SCORE: 4/10 LOCATION: Bilateral chest FINDINGS: A single view of the chest demonstrates the lungs to be mildly hyperinflated but clear. No effusions. Heart size is prominent a well compensated. Unipolar left subclavian pacer is radiographically intac t. Surgical clips are identified near the GE junction. Osseous structures are intact. CONCLUSION: 1. Lungs are mildly hyperinflated but clear. 2. Compensated cardiomegaly. Evelio Carey MD on June 05, 2017 at 13:44 Board Certified Radiologist. This report was verified electronically.
[2017-06-05 14:00] LABS: BILIRUBIN, URINE NEG (NEG); BLOOD, URINE NEG (NEG); GLUCOSE,URINE NEG (NEG); KETONE, URINE 15 mg/dL (NEG); NITRITE,URINE NEG (NEG); PH, URINE 6.5 (5.0-8.5); URINE LEUKOCYTE ESTERASE NEG (NEG)
[2017-06-05 14:01] LABS: CHLORIDE 103 MEQ/L (98-107); SODIUM (NA) 135 MEQ/L (136-145)
[2017-06-05 14:03] LABS: BASOPHIL % 0.8 % (0.0-2.0); EOSINOPHIL # 0.1 TH/MM3 (0-0.4); EOSINOPHIL % 1.2 % (0.0-4.0); HEMATOCRIT 37.3 % (39.0-51.0); HEMOGLOBIN 12.4 GM/DL (13.0-17.0); LYMPH % 11.4 % (9.0-44.0); LYMPHOCYTE # 0.6 TH/MM3 (1.0-4.8); MEAN CELL VOLUME 93.1 FL (80.0-100.0); MEAN CORPUSCULAR HEMOGLOBIN 31.1 PG (27.0-34.0); MEAN CORPUSCULAR HGB CONC 33.4 % (32.0-36.0); MEAN PLATELET VOLUME 8.9 FL (7.0-11.0); MONO % 6.4 % (0.0-8.0); MONOCYTE # 0.3 TH/MM3 (0-0.9); NEUT % 80.2 % (16.0-70.0); PLATELET COUNT 142 TH/MM3 (150-450); RED CELL DISTRIBUTION WIDTH 13.7 % (11.6-17.2)
[2017-06-05 14:06] LABS: ALBUMIN 3.4 GM/DL (3.4-5.0); BICARBONATE 21.2 MEQ/L (21.0-32.0); CALCIUM 8.7 MG/DL (8.5-10.1); GLUCOSE,RANDOM 111 MG/DL (74-106); INTERNATIONAL NORMALIZED RATIO 1.2 RATIO; PROTHROMBIN TIME - PATIENT 11.9 SEC (9.8-11.6)
[2017-06-05 14:07] LABS: BLOOD UREA NITROGEN 17 MG/DL (7-18)
[2017-06-05 14:09] LABS: ALT (GPT) 26 U/L (12-78); AST (GOT) 22 U/L (15-37); GLOMERULAR FILTRATION RATE 64 ML/MIN (>89)
[2017-06-05 14:11] LABS: TOTAL BILIRUBIN ADULT 0.9 MG/DL (0.2-1.0)
[2017-06-05 14:12] LABS: ALKALINE PHOSPHATASE 87 U/L (45-117)
[2017-06-05 14:14] LABS: TROPONIN I LESS THAN 0.02 NG/ML (0.02-0.05)
[2017-06-05 14:25] LABS: URINE COLOR YELLOW (YELLW/STRAW)
[2017-06-05 14:26] LABS: MUCUS URINE FEW /lpf (OCC); SQUAMOUS EPITHELIAL CELL URINE 0-2 /hpf (0-5); WBC, URINE 0-2 /hpf (0-5)
--- NOTE | 2017-06-05 14:26 | RADRPT ---
EXAM DATE/TIME: 06/05/2017 14:15 [facility] COMPARISON: No previous studies available for comparison. INDICATIONS : Left upper extremity numbness. Confusion. RADIATION DOSE: 57.25 CTDIvol (mGy) MEDICAL HISTORY : Cardiovascular disease. Hypertension. Carcinoma, prostate. SURGICAL HISTORY : Pacemaker. ENCOUNTER: Initial ACUITY: 1 day PAIN SCALE: 0/10 LOCATION: cranial TECHNIQUE: Multiple contiguous axial images were obtained of the head. Using automated exposure control and adj ustment of the mA and/or kV according to patient size, radiation dose was kept as low as reasonably a chievable to obtain optimal diagnostic quality images. DICOM format image data is available electro nically for review and comparison. FINDINGS: CEREBRUM: The ventricles are normal for age. No evidence of midline shift, mass lesion, hemorrhage or acute in farction. No extra-axial fluid collections are seen. POSTERIOR FOSSA: The cerebellum and brainstem are intact. The 4th ventricle is midline. The cerebellopontine angle i s unremarkable. EXTRACRANIAL: The visualized portion of the orbits is intact. SKULL: The calvaria is intact. No evidence of skull fracture. CONCLUSION: Negative for acute process. Rommel Adams MD FACR on June 05, 2017 at 14:23 Board Certified Radiologist. This report was verified electronically.
[2017-06-05 14:27] LABS: BACTERIA, URINE OCC /hpf
[2017-06-05] MEDS ORDERED: MACR100C2 PO (15:01)
[2017-06-05] MEDS ORDERED: NITROFURANTOIN MONOHYD MACROCR 100 MG CAP PO ONE (15:15)
[2017-06-05 16:27] VITALS: BP 136/72
--- NOTE | 2017-06-06 19:24 | EKG ---
Date Performed: 06/05/2017 Time Performed: 12:56:34 PTAGE: 81 years EKG: ELECTRONIC VENTRICULAR PACEMAKER ABNORMAL RHYTHM ECG INTERPRETATION BASED ON A DEFAULT AGE OF 40 YEARS Since the prior tracing, there has been no significant change PREVIOUS TRACING : 07/15/2012 07.42 DOCTOR: Narendra Nair Interpretating Date/Time 06/06/2017 19:23:49
== END 2017-06-05 19:07 | disposition home or self-care (01) ==
LOC: PHED 12:50
DX: N39.0 Urinary tract infection, site not specified (principal); B96.20 Unspecified Escherichia coli [E. coli] as the cause of diseases classified elsewhere; B96.4 Proteus (mirabilis) (morganii) as the cause of diseases classified elsewhere; R06.02 Shortness of breath; R94.31 Abnormal electrocardiogram [ECG] [EKG]; I10 Essential (primary) hypertension; K21.9 Gastro-esophageal reflux disease without esophagitis; Z95.0 Presence of cardiac pacemaker; Z79.01 Long term (current) use of anticoagulants; Z79.899 Other long term (current) drug therapy; Z87.19 Personal history of other diseases of the digestive system; Z86.69 Personal history of other diseases of the nervous system and sense organs; Z86.59 Personal history of other mental and behavioral disorders; Z85.46 Personal history of malignant neoplasm of prostate; Z85.038 Personal history of other malignant neoplasm of large intestine; Z85.828 Personal history of other malignant neoplasm of skin
CPT/HCPCS: 70450; 71045; 80053; 80162; 81001; 82140; 82550; 84443; 84484; 85610; 85730; 87077; 87086; 87186; 93005; 99285

== ENCOUNTER → 2017-10-06 | Day surgery (SDC) | payer OTHER ==
[~2017-10-06] VITALS: Ht 180.3 cm; Wt 69.5 kg
[~2017-10-06] MED LIST changes: +BACITRACIN TOP OINT 15 GM TUBE ONE; -BACT800T5 PO; +BUPIVACAINE/EPINEPHRINE 0.5% PF 30 ML VIAL ONE; -CEPH500C PO; +CETI10 PO; +CHLORHEXIDINE GLUCONATE 2 % 1 PACK (2 CLOTHS) TOPICAL PRN; -DIPH25CA PO; -FERR325C PO; +FERR325T20 PO; +LACTATED RINGER'S 1000 ML IV PRN; +LIDOCAINE 1%/EPINEPHrine 1:100,000 SOLN 30 ML VIAL ONE; +LIDOCAINE HCL 1% PF 30 ML VIAL ONE; +MACR100C2 PO; +MORPHINE SULFATE 2 MG/ML SYRINGE ONE; -NEUR100C PO; +POVIDONE IODINE 5% (ANTISEPSIS KIT) 4 APPLICATIONS EACH NARE PRN; +SODIUM BICARBONATE 8.4% INJ 0 ML ONE; +SODIUM CHLORID 0.9% 500 ML IV PRN; +ceFAZolin 2 GM/DEX PREMIX 50 ML IV SCH; +oxyCODONE/ACETAMINOPHEN 5 MG/325 MG TAB ONE
[2017-10-06 10:30] VITALS: BP 130/86; PULSE 64; RESP 16; TEMP 97.5; O2SAT 97
--- NOTE | 2017-10-06 10:33 | MP ---
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 PROCEDURE PERFORMED: Wide excision of right posterior ear melanoma with closure with full-thickness skin graft, 3 x 3 cm, from donor site right flank. ATTENDING SURGEON: Kwasi Banks MD [employer]ER: Staff. ANESTHESIA: General and local anesthetic. COMPLICATIONS: None. FINDINGS: 1. A pigmented lesion consistent with the patient's melanoma as marked preoperatively, widely excised from the posterior helix the upper right ear. 2. Full-thickness skin graft with adequate coverage of the graft simple closure with a tension of the flank donor incision site. INDICATIONS FOR PROCEDURE: The patient is an 81-year-old male who developed a pigmented lesion of his right posterior ear. A biopsy did confirm melanoma. The patient was referred for definitive treatment with wide excision. Risks, benefits, and alternatives were discussed with the patient in detail prior to the procedure, and the patient agreed to undergo the procedure. Due to the patient's poor performance status and high surgical risk, as well as the location of the melanoma, the patient was notably staged clinically with ultrasound and PET CT scan. There is no evidence of regional disease in the neck or parotid area based on the patient's clinical staging. Proceeding with wide excision was advised to the patient. DESCRIPTION OF PROCEDURE: After the site was preoperatively verified and marked with the patient, the patient was taken to the operating room at [facility] and placed under general endotracheal anesthesia. The patient was transferred to the left lateral decubitus position. We then shaved, prepped and draped in a sterile fashion the right ear, anterior and posterior as well as some of the lateral scalp as well as the patient's right flank for the donor site. Then timeout was performed. We harvested the donor site, taking a 5 x 3 cm elliptical skin incision over the right flank after local instillation of local anesthetic. This was done with a 15 blade scalpel and Bovie electrocautery was used to excise the skin and some of the subcutaneous tissue. A little elevation was done as undermining under the skin about 1 cm enough to close this without tension. We closed this with 3-0 Vicryl, followed by 4-0 Monocryl after we had good hemostasis. We placed some Dermabond over the external skin as well. We had excellent technical closure. We then placed the skin in sterile saline to preserve it for later in the case. We then turned our attention towards the right ear. We measured out 1 cm or greater around the patient's posterior helix. We sized this with a 15 blade scalpel after instillation of local anesthetic. The use of Bovie electrocautery to take this off of the cartilaginous portion of the helix. A stitch was marked at 12 superior and passed off for permanent processing. We again had excellent hemostasis with the Bovie electrocautery. We had good viable tissue overlying the cartilage. We did then at this point in time take the skin graft, cut this to the custom size and defatted the specimen as well. We pie crusted the specimen with an 11-blade scalpel. This laid over the posterior helix without tension and with good coverage. We sewed this in place with running 4-0 chromic suture. A buttress was placed with antibacterial ointment and iodoform gauze and cotton balls. A single nylon stitch was also placed to hold the buttress in place. At this point in time, the patient was discontinued from the anesthesia and taken to the PACU in stable condition. The patient tolerated the procedure well. No apparent complications. All counts were correct. I was present and scrubbed for the entire procedure. MD ALIZE Vyas/KRISTIE , 09:44 AM , 10:31 AM
== END | disposition home or self-care (01) ==
LOC: PHSDC 06:09
PROVIDERS: ATTEND Surgery
DX: C43.21 Malignant melanoma of right ear and external auricular canal (principal); I13.0 Hypertensive heart and chronic kidney disease with heart failure and stage 1 through stage 4 chronic kidney disease, or unspecified chronic kidney disease; N18.2 Chronic kidney disease, stage 2 (mild); R73.9 Hyperglycemia, unspecified; K21.9 Gastro-esophageal reflux disease without esophagitis; D72.819 Decreased white blood cell count, unspecified; I48.91 Unspecified atrial fibrillation; D64.9 Anemia, unspecified; N40.0 Benign prostatic hyperplasia without lower urinary tract symptoms; C61 Malignant neoplasm of prostate; Z95.0 Presence of cardiac pacemaker; Z86.73 Personal history of transient ischemic attack (TIA), and cerebral infarction without residual deficits; K22.70 Barrett's esophagus without dysplasia; Z85.828 Personal history of other malignant neoplasm of skin
CPT/HCPCS: 00300; 11644; 15260; 88305; 88341; 88342; J0690; J2270; J3010; J7120